=== PATIENT | female | born 1960 | race Caucasian/White ===

== ENCOUNTER 2016-09-04 22:14 | Observation (INO) | payer SELFPAY ==
--- NOTE | ~2016-09-04 | DS ---
Discharge Summary [address] [address] [place]. [address] NAME: MORENO COFFEY : 56 STATUS : DIS Toi PAT#: [id number] AGE: 56 ADM/REG DATE : 09/04/16 MR#: [id number] REPORT SERV DATE: 09/06/16 DICTATED BY: SISSY MANZANO DATE: 09/05/16 REPORT STATUS : Draft TRANSCRIBED BY: MODL DATE: 09/05/16 ADMISSION DATE: 09/04/2016 DISCHARGE DATE: 09/05/2016 More than 30 minutes were spent in total on this discharge. DISCHARGE DIAGNOSES: Include: 1. Acute exacerbation of chronic obstructive pulmonary disease. 2. Hypercapnic respiratory failure. DISPOSITION: The patient will be discharged home in fair condition to follow up with Dr. Kevin Herrera in one week. Her discharge medications includes doxycycline 100 mg one p.o. b.i.d. for six days, prednisone 40 mg daily for six days, Symbicort 160 two puffs twice daily, albuterol and Atrovent nebulizer treatments, theophylline 200 mg one p.o. b.i.d., Singulair 10 mg daily, Zyrtec 10 mg daily. Pertinent testing during hospitalization included the Legionella urinary antigen, which was negative. antigen, which was negative. Chest x-ray, which was normal. BNP level of 4.4. ABG with pH is 7.35, pCO2 of 57, pO2 of 123, bicarbonate 30.7, procalcitonin less than 0.05. Troponin less than 0.02. CPK of 69. HOSPITAL COURSE: Ms. Coffey is a 56-year-old white female, who was admitted by Dr. Benavidez for COPD exacerbation and hypercapnic respiratory failure. When I saw her, she was dramatically improved. She was no longer on the BiPAP. The first thing she told me when I walked in the room was that she had to go home immediately to take care of her granddaughter. I explained to her that that was not appropriate for somebody who had just been admitted with this problem. She was adamant and in order to prove it, she walked approximately 200 feet with my observation. At that point, I did change her to oral steroids and we watched her the remainder of the day. At this point, she is doing quite well and is again adamant about going home. I did have her sign some paperwork indicating that there was an increased risk of going home early. This conversation was heard by her daughter as well. At this point, she is in stable condition. She will be discharged home to follow up as above. DICTATED BY: Sissy Manzano M.D. DD/MARITZA Sissy Manzano M.D. / [id number] Discharge Summary [address] [address] NAME: MORENO COFFEY : 56 STATUS : DIS Toi PAT#: [id number] AGE: 56 ADM/REG DATE : 09/04/16 MR#: [id number] REPORT SERV DATE: 09/06/16 DICTATED BY: SISSY MANZANO DATE: 09/05/16 REPORT STATUS : Draft TRANSCRIBED BY: MARITZA DATE: 09/05/16 CC: Kathy Putnam III, M.D.
--- NOTE | ~2016-09-04 | HP ---
History And Physical [address] [address] NAME: MORENO COFFEY : 56 STATUS : ADM oTi PAT#: [id number] AGE: 56 ADM/REG DATE : 09/04/16 MR#: [id number] REPORT SERV DATE: 09/05/16 DICTATED BY: YUKI BENAVIDEZ DATE: 09/05/16 REPORT STATUS : Draft TRANSCRIBED BY: MODL DATE: 09/05/16 DATE OF ADMISSION: 09/04/2016 CHIEF COMPLAINT: A 56-year-old female presenting with shortness of breath. HISTORY OF PRESENTING ILLNESS: The patient's history was obtained through careful interview with the patient and daughter, coupled with review of [facility] medical records. For about a week now, the patient has had increasing shortness of breath characterized by dyspnea on exertion. No orthopnea. No paroxysmal nocturnal dyspnea. She describes sinus drainage with a cold that has been descending down into her chest, a prominent wheeze, and now cough that has been productive of a scant green sputum. She describes an increasing cough with lying down flat. She has had chest discomfort, exacerbated by coughing, in the middle of her chest, a sharp quality, 7/10 severity. She has had no sinus headache. She has had chills, but no fevers. No confusion, no lightheadedness. She has felt irritable. No diarrhea. No nausea or vomiting. No abdominal pain. No lower extremity edema. REVIEW OF SYSTEMS: Otherwise, a 14-point review of systems was obtained and was negative. PAST MEDICAL HISTORY: 1. COPD, oxygen dependent. 2. Hypothyroidism. 3. Migraine headaches. 4. Central line-induced pneumothorax. PAST SURGICAL HISTORY: 1. Wrist surgery. 2. Exploratory laparoscopy. 3. Cervical spine surgery with anterior approach. ALLERGIES: MORPHINE AND CODEINE. SOCIAL HISTORY: Quit smoking about two years ago. Drinks occasional wine. Has been a for about 10 years. Lives with a roommate. Supportive daughter at bedside. FAMILY HISTORY: Adopted. CURRENT MEDICATIONS: Include albuterol inhaler, Symbicort two puffs inhaled twice a day, Zyrtec 10 mg p.o. daily, Singulair 10 mg p.o. daily, multivitamin daily, theophylline 200 mg History And Physical [address] [address] NAME: MORENO COFFEY : 56 STATUS : ADM Toi PAT#: [id number] AGE: 56 ADM/REG DATE : 09/04/16 MR#: [id number] REPORT SERV DATE: 09/05/16 DICTATED BY: YUKI BENAVIDEZ DATE: 09/05/16 REPORT STATUS : Draft TRANSCRIBED BY: MODL DATE: 09/05/16 p.o. b.i.d., Bactrim double strength p.o. b.i.d., vitamin C. PHYSICAL EXAMINATION: VITAL SIGNS: Temperature 97.8, pulse 92, blood pressure 154/71, respiratory rate 31, O2 saturation 96% on 4 L nasal cannula. GENERAL: A pleasant, cooperative female. She has been in distress from shortness of breath. HEENT: Pupils equal, round, and reactive to light. No conjunctival pallor. No scleral icterus. Nares are patent. Oropharynx is clear of obstruction. Moist mucous membranes. NECK: Trachea midline. No thyromegaly. LYMPH: No cervical lymphadenopathy. No supraclavicular lymphadenopathy. RESPIRATORY: The patient has inspiratory and expiratory wheezes. Harsh upper respiratory rhonchi. No rales. Labored respiratory effort, heaving with her abdomen to assist in breathing. CARDIOVASCULAR: Regular rate and rhythm. No murmurs, rubs, or gallops. No extremity edema is appreciated. ABDOMEN: Soft, nontender, nondistended. Normal bowel sounds auscultated throughout. No hepatosplenomegaly. DERMATOLOGICAL: Warm and dry extremities. No pallor, no cyanosis. PSYCHIATRIC: Normal affect. Good mood. Alert and oriented x3. LABORATORY DATA: ABG demonstrates pH 7.35, a PaCO2 of 57, a PaO2 of 123, and a bicarb of 31. White blood cell count 8.7, hemoglobin 15, hematocrit 45, platelets 298. Sodium 139, potassium 4.1, chloride 101, bicarb 34, BUN 10, creatinine 0.72, glucose 128, lactic acid 0.5. INR 1.0. Troponin negative. STUDIES: 1. Chest x-ray by my own evaluation shows no infiltrate. COPD changes. 2. EKG by my own evaluation shows sinus rhythm, no major abnormalities otherwise. ASSESSMENT AND PLAN: 1. Chronic obstructive pulmonary disease exacerbation. Initially, was started on BiPAP in the emergency department because of respiratory distress, but she has been doing so well on BiPAP that I will just use it until about 7 or 8 in the morning (about seven hours after admission) and try IV Solu-Medrol, doxycycline, and duo nebulizers. It seems that her respiratory distress has been rapidly improving with therapies thus far. 2. Hypercapnia. We will follow ABG, try BiPAP overnight, and monitor. 3. Sinusitis. KPL/MODL Yuki Benavidez M.D. / [id number] History And Physical [address] [address] NAME: MORENO COFFEY : 56 STATUS : ADM Toi PAT#: [id number] AGE: 56 ADM/REG DATE : 09/04/16 MR#: [id number] REPORT SERV DATE: 09/05/16 DICTATED BY: YUKI BENAVIDEZ DATE: 09/05/16 REPORT STATUS : Draft TRANSCRIBED BY: MARITZA DATE: 09/05/16 CC: Kathy Gottlieb III, M.D. Suresh Enjeti, M.D.
[2016-09-04 21:46] LABS: ALLENS TEST Pos; BE (BASE EXCESS) 3.5 MEQ/L (0 +/- 2.5); DEVICE VM; HCO3 (ACTUAL BICARBONATE) 30.7 MEQ/L (23-27); INSTRUMENT SERIAL # 8087; OPERATOR ID 17589; PCO2 (CO2 TENSION) 57 MMHG (35-45); PO2 (O2 TENSION) 123 MMHG (79-93); SAMPLE Arterial; pH 7.35 (7.37-7.43)
[2016-09-04 22:04] LABS: BASOPHILS 0.3 %; BASOPHILS ABSOLUTE 0.03 10/3/uL (0.0-0.16); EOSINOPHILS 4.2 %; EOSINOPHILS ABSOLUTE 0.36 10/3/uL (0.0-0.53); ER CBC TAT 0 Hrs 05 Mins; HEMATOCRIT 45.1 % (36.0-48.0); HEMOGLOBIN 15.2 g/dL (12.0-16.0); IMMATURE GRANULOCYTES 0.1 %; IMMATURE GRANULOCYTES ABSOLUTE 0.01 10/3/uL (0.0-0.11); LYMPHOCYTES ABSOLUTE 1.13 10/3/uL (0.67-4.30); MEAN CORPUS HGB CONC 33.7 g/dL (32.0-36.0); MEAN CORPUSCULAR HEMOGLOB 31.1 pg (26.0-34.0); MEAN PLATELET VOLUME 9.1 fL (9.2-13.0); MONOCYTES 16.4 %; MONOCYTES ABSOLUTE 1.42 10/3/uL (0.21-1.20); NEUTROPHILS ABSOLUTE 5.71 10/3/uL (2.02-8.40); PLATELET COUNT 298 10/3/uL (150-400); RBC DISTRIBUTION WIDTH 13.5 % (12.0-16.0); RED CELL COUNT 4.89 10/6/uL (4.0-5.6); WHITE BLOOD CELLS 8.7 10/3/uL (4.5-10.5)
[2016-09-04 22:06] LABS: MANUAL DIFF NO %; MEAN CORPUSCULAR VOLUME 92.2 fL (80-100)
[2016-09-04 22:11] LABS: PARTIAL THROMBO TIME 28.2 SEC (22.5-37.2); PROTIME (NOT ORD) 12.9 SEC (12.0-14.5)
[2016-09-04 22:21] LABS: BUN (BLOOD UREA NITROGEN) 10 MG/DL (6-23); CALCIUM, SERUM 9.1 MG/DL (8.5-10.4); CHEST PAIN PROFILE TAT 0 Hrs 22 Mins; CHLORIDE, SERUM 101 MMOL/L (96-112); CO2 (CARBON DIOXIDE) 34 MMOL/L (24-34); CREATININE 0.72 MG/DL (0.55-1.02); GFR AFRICAN AMERICAN 107 ML/MIN (>=60); GFR NON AFRICAN AMERICAN 92 ML/MIN (>=60); GLUCOSE, SERUM 128 MG/DL (60-99); LACTATE 0.5 MMOL/L (0.3-2.4); SODIUM, SERUM 139 MMOL/L (135-148); TROPONIN I <0.02 NG/ML (<0.05)
[2016-09-04 22:22] LABS: POTASSIUM, SERUM 4.1 MMOL/L (3.5-5.3)
[2016-09-04] MEDS ORDERED: BAC PO (22:31)
[2016-09-04] MEDS ORDERED: PROAIR HFA INH (22:31)
[2016-09-04] MEDS ORDERED: SYMBICORT 160/41 INH INH (22:32)
[2016-09-04] MEDS ORDERED: SINGULAIR1 PO (22:32)
[2016-09-04] MEDS ORDERED: [UNRECOGNIZED DRUG - CODE] PO (22:32)
[2016-09-04] MEDS ORDERED: ZYRTEC ALLGY10 MG PO (22:32)
[2016-09-04] MEDS ORDERED: VITAMIN C POWDER PO (22:33)
[2016-09-04] MEDS ORDERED: MULTIVIT/MIN PO (22:34)
[2016-09-05 04:33] LABS: ALLENS TEST Pos; BE (BASE EXCESS) 6.2 MEQ/L (0 +/- 2.5); BIPAP 15/5 cm.H2O; CARBOXYHEMOGLOBIN 1.1 % (0-3); HCO3 (ACTUAL BICARBONATE) 33.6 MEQ/L (23-27); HEMOBLOGIN CONTENT 14.5 G/DL (12-16); INSTRUMENT SERIAL # 35151; METHEMOGLOBIN 0.5 % (0-3); O2 CONTENT 19.2 VOL% (18-24); OPERATOR ID 33449; PCO2 (CO2 TENSION) 60 MMHG (35-45); PO2 (O2 TENSION) 77 MMHG (79-93); SAMPLE Arterial; pH 7.37 (7.37-7.43)
[2016-09-05 10:57] LABS: BASOPHILS 0.2 %; BASOPHILS ABSOLUTE 0.01 10/3/uL (0.0-0.16); EOSINOPHILS 0 %; HEMOGLOBIN 13.7 g/dL (12.0-16.0); IMMATURE GRANULOCYTES 0.2 %; IMMATURE GRANULOCYTES ABSOLUTE 0.01 10/3/uL (0.0-0.11); LYMPHOCYTES 9.7 %; LYMPHOCYTES ABSOLUTE 0.52 10/3/uL (0.67-4.30); MEAN CORPUS HGB CONC 34.1 g/dL (32.0-36.0); MEAN CORPUSCULAR HEMOGLOB 31.1 pg (26.0-34.0); MEAN CORPUSCULAR VOLUME 91.4 fL (80-100); MEAN PLATELET VOLUME 9.2 fL (9.2-13.0); MONOCYTES 3.6 %; MONOCYTES ABSOLUTE 0.19 10/3/uL (0.21-1.20); NEUTROPHILS 86.3 %; NEUTROPHILS ABSOLUTE 4.61 10/3/uL (2.02-8.40); PLATELET COUNT 256 10/3/uL (150-400); RBC DISTRIBUTION WIDTH 13.7 % (12.0-16.0); WHITE BLOOD CELLS 5.3 10/3/uL (4.5-10.5)
[2016-09-05 11:01] LABS: HEMATOCRIT 40.2 % (36.0-48.0); MANUAL DIFF NO %
[2016-09-05 11:04] LABS: INTERNATIONAL NORMAL RATI 1.1 UNITS (-); PARTIAL THROMBO TIME 31.9 SEC (22.5-37.2); PROTIME (NOT ORD) 13.8 SEC (12.0-14.5)
[2016-09-05 11:20] LABS: A/G RATIO 0.8 (0.7-1.9); ALBUMIN 3.3 G/DL (3.5-5.0); ALKALINE PHOSPHATASE 85 U/L (45-117); BUN (BLOOD UREA NITROGEN) 13 MG/DL (6-23); CALCIUM, SERUM 8.9 MG/DL (8.5-10.4); CHLORIDE, SERUM 102 MMOL/L (96-112); CPK 69 U/L (0-200); CREATININE 0.81 MG/DL (0.55-1.02); GFR AFRICAN AMERICAN 93 ML/MIN (>=60); GFR NON AFRICAN AMERICAN 80 ML/MIN (>=60); GLOBULIN 4.4 G/DL (2.5-4.1); POTASSIUM, SERUM 4.5 MMOL/L (3.5-5.3); SGOT(AST) 39 U/L (5-40); SGPT(ALT) 44 U/L (5-65); SODIUM, SERUM 134 MMOL/L (135-148); TOTAL BILIRUBIN 0.4 MG/DL (0-1.2); TOTAL PROTEIN 7.7 G/DL (6.0-8.5); TROPONIN I <0.02 NG/ML (<0.05); ULTRASENSITIVE TSH 0.462 MCIU/ML (0.358-3.740)
[2016-09-05 11:21] LABS: CK-MB 1.4 NG/ML; CO2 (CARBON DIOXIDE) 27 MMOL/L (24-34); GLUCOSE, SERUM 172 MG/DL (60-99)
[2016-09-05 12:04] LABS: PROCALCITONIN <0.05 ng/mL (<0.5)
[2016-09-05] MEDS ORDERED: VIBRATAB100 MG PO (15:35)
[2016-09-05] MEDS ORDERED: P20 PO (15:35)
== END 2016-09-05 16:17 | disposition home or self-care (01) ==
LOC: ER 22:14 → CDU1 23:50 → 5NO 09-05 01:08
PROVIDERS: Emergency Medicine; Hospitalist; Internal Medicine
DX: J44.1 Chronic obstructive pulmonary disease with (acute) exacerbation (principal); J96.02 Acute respiratory failure with hypercapnia; J01.90 Acute sinusitis, unspecified; Z99.81 Dependence on supplemental oxygen; Z87.891 Personal history of nicotine dependence; Z79.51 Long term (current) use of inhaled steroids; Z79.899 Other long term (current) drug therapy
CPT/HCPCS: 36600 ×2; 71010 ×2; 80048; 80053; 82550; 82553; 82805 ×2; 83605; 83735 ×2; 83880 ×2; 84145; 84443; 84484 ×2; 85025 ×2; 85610 ×2; 85730 ×2; 87040; 87449 ×2; 93005; 94640 ×5; 94660; 96365; 96366; 96372; 96375; 96376; 99291; A9270 ×6; G0378; J0456; J2920; J2930